=== PATIENT | male | born 1995 | race Caucasian/White ===

== ENCOUNTER 2019-06-16 05:59 | Emergency (ER) | payer BC, OTHER ==
[2019-06-16] MEDS ORDERED: AMOXICILLIN/POT 875/125 1 EACH PO ONE (06:26)
--- NOTE | 2019-06-16 06:30 | ED Physician Documentation ---
Upper Respiratory Symptoms - HISTORIAN Historian: patient - HPI Stated Complaint: "I think I have bronchitis" Chief Complaint: Cough/ Upper Respiratory Additional Information: 23 year old male presents with cough, congestion, fever, chills that started a couple of days ago. He is needing a work excuse to return to work. Onset: days ago Duration: sudden-Onset Context: denies: recent foreign travel, multiple patients Severity: mild Associated Symptoms: fever, chills, sweating, sinus pain, sinus drainage, productive cough Worsened by Deep Breath: No - ROS CONST/EYES: denies: eye redness, eye itching CVS/RESP: none GI/: none NEURO/PSYCH: denies: dizziness MS/SKIN: muscle aches - PAST HX Lung Disease: none PE Risk Factors: none Surgeries/Procedures: none Immunizations: UTD Allergies/Adverse Reactions: Allergies Allergy/AdvReac Type Severity Reaction Status Date / Time bee venom protein (honey bee) Allergy Verified 06/16/19 06:25 Bleach (Sodium Hypochlorite) Allergy Verified 06/16/19 06:24 Home Medications: Ambulatory Orders Medication Instructions Recorded Amoxicillin/Potassium Clav 875 each PO BID #19 tablet 06/16/19 [Augmentin 875Mg/125Mg] Benzonatate [Tessalon] 20 mg PO TID PRN #15 capsule 06/16/19 - SOCIAL HX Smoking History: non-smoker Alcohol Use: none Drug Use: none - FAMILY HX Family History: none - VITAL SIGNS Vital Signs: Vital Signs Temp Pulse Resp BP Pulse Ox 97.3 F L 103 H 12 141/87 94 06/16/19 06:00 06/16/19 06:00 06/16/19 06:00 06/16/19 06:00 06/16/19 06:00 - REVIEWED ASSESSMENTS Nursing Assessment Reviewed: Yes Vitals Reviewed: Yes ED Results Lab/Radiology - Orders Orders: ED Orders Category Date Time Status Amoxicillin/Potassium Clav [AUGMENTIN 875MG/125 mg Med 06/16/19 06:26 Once Tablet] 1 each PO NOW ONE Upper Respiratory Symptoms - EXAM General Appearance: no acute distress, alert EENT: eyes nml inspection, nml ENT inspection, lids & conjunct. nml, PERRL, ear nml Neck: normal inspection Respiratory: speaks full sentences, rhonchi (in the right upper lobe) Abdomen: non-tender, nml bowel sounds CVS: heart sounds normal Skin: warm,dry Extremities: normal range of motion Neuro/Psych: oriented x3, neuro intact, mood/affect nml Discharge Clincal Impression: Upper respiratory infection Referrals: Carine Dorman MD [Primary Care Provider] - 2 Days Additional Instructions: Take Augmentin 875mg by mouth twice a day for 10 days Tessalon pearls 200mg by mouth 3 times a day as needed for cough Consume > 64 oz of water daily Alternate Tylenol and Ibuprofen as needed for discomfort/fever Follow up with PCP in one week for re-evaluation or as needed Condition: Good Disposition: 01 HOME, SELF-CARE Decision to Admit: NO Decision Time: 06:32
[2019-06-16 07:12] VITALS: BP 141/87
== END 2019-06-16 06:30 | disposition home or self-care (01) ==
LOC: ED 05:59
DX: J06.9 Acute upper respiratory infection, unspecified (principal)
CPT/HCPCS: 99282